=== PATIENT | female | born 1990 | race Caucasian/White ===

== ENCOUNTER → 2016-10-18 07:37 | Emergency (ER) | payer OTHER ==
[~2016-10-18 07:37] MED LIST: Dexamethasone IV* 4 MG/ML 1 ML (4 MG) IV SLOW PU ONE; Ketorolac INJ* 30 MG/ML 1 ML VIAL IV PUSH ONE; Orphenadrine Citrate IV* 30 MG/ML 2 ML VIAL IV ONE
[2016-10-18 09:03] LABS: Urine Bacteria Absent (Absent); Urine Bilirubin Negative (Negative); Urine Glucose Negative (Negative); Urine Nitrite Negative (Negative)
--- NOTE | 2016-10-18 09:07 | RAD ---
HISTORY: Back pain COMPARISONS: None VIEWS: 3 , Frontal, lateral, and coned-down lateral sacral views of the lumbar spine FINDINGS: ALIGNMENT: There is straightening of the normal lumbar lordosis. VERTEBRAL BODIES: The vertebral body heights are normal. The interpedicular distances are normal. JOINTS: The facet joints are normal. INTERVERTEBRAL DISCS: The intervertebral disc heights are normal. SOFT TISSUE: Unremarkable. OTHER: The pelvis is unremarkable. The lung bases are clear. IMPRESSION: STRAIGHTENING OF THE LUMBAR LORDOSIS.
[2016-10-18 10:00] VITALS: BP 114/60
--- NOTE | 2016-10-18 18:03 | ED ---
Elgin Hollis Billy, scribed for Xu Rockwell MD on 10/18/16 at 0758 . Back Pain - HPI Summary HPI Summary: Patient is a 26 year-old female coming to [facility] for evaluation of lower back pain since yesterday. She denies any nausea, vomiting, or urinary symptoms. Denies vaginal bleeding or discharge. LMP 1 week ago. She has no other complaints at this time. - History of Current Complaint Chief Complaint: EDBackInjuryPain Stated Complaint: BACK PAIN Time Seen by Provider: 10/18/16 07:56 Hx Obtained From: Patient Hx Last Menstrual Period: 2 weeks ago Onset/Duration: Gradual Onset Onset/Duration: Started Days Ago Timing: Constant Back Pain Location: Is Discrete @ Severity Initially: Moderate Severity Currently: Moderate Pain Intensity: 4 Pain Scale Used: 0-10 Numeric Associated Signs And Symptoms: Negative: Bladder Incontinence, Bowel Incontinence - Allergies/Home Medications Allergies/Adverse Reactions: Allergies Allergy/AdvReac Type Severity Reaction Status Date / Time Nickel Allergy Severe Rash Verified 03/30/16 11:35 Latex Allergy Mild Rash Verified 03/30/16 11:35 PMH/Surg Hx/FS Hx/Imm Hx Endocrine/Hematology History: Denies: Hx Anticoagulant Therapy, Hx Diabetes, Hx Thyroid Disease Cardiovascular History: Denies: Hx Hypertension, Hx Pacemaker/ICD Respiratory History: Reports: Hx Asthma Denies: Hx Chronic Obstructive Pulmonary Disease (COPD) GI History: Reports: Other GI Disorders - COLITIS /DIARRHEA/BLOOD IN STOOL History: Reports: Other Problems/Disorders - colitis hx Denies: Hx Renal Disease Neurological History: Denies: Hx Dementia, Hx Seizures Psychiatric History: Reports: Hx Anxiety, Hx Depression Denies: Hx Substance Abuse - Immunization History Date of Tetanus Vaccine: Unknown Infectious Disease History: No Infectious Disease History: Denies: Hx Hepatitis, Hx Human Immunodeficiency Virus (HIV), Traveled Outside the [place] in Last 30 Days - Family History Known Family History: Positive: Cardiac Disease, Diabetes - Social History Alcohol Use: None Substance Use Type: Reports: None Hx Tobacco Use: Yes Smoking Status (MU): Light Every Day Tobacco Smoker Type: Cigarettes Amount Used/How Often: quit a few months ago Have You Smoked in the Last Year: Yes Review of Systems Negative: Fever Negative: dysuria, hematuria Musculoskeletal: Other - lower back pain All Other Systems Reviewed And Are Negative: Yes Physical Exam - Summary Physical Exam Summary: General: Patient is a well developed female without any distress that is laying comfortably in the stretcher. Skin: [place], warm, dry HEAD AND FACE: No signs of trauma. EYES: PERRLA, EOMI x 2. EARS: Hearing grossly intact. MOUTH: Oropharynx within normal limits. NECK: Supple, trachea is midline, no adenopathy, no JVD. CHEST: Symmetric, no tenderness at palpation LUNGS: CTA bilaterally, no rales, rhonchi or wheezing CVS: RRR, no murmur, rub, or gallop ABDOMEN: soft and Nontender without masses, no guarding or rebound. Bowel sounds are active. No Hepato-splenomegaly. No signs of inguinal hernias. BACK: Patient walked into the ED room with symmetric ambulation, No signs of limping, antalgic, able to bear weight. No signs of trauma, no soft tissue or muscle tenderness, positive spasm in the Paraspinal muscles of the lumbar spine. No masses palpated. No point tenderness. No CVAT, no flank ecchymosis . No sacroiliac notch tenderness, No saddle anesthesia ROM: flexion/ extension/ lateral bending and rotation, note if limited or causes pain negative Straight Leg Raise Patellar reflexes: brisk, symmetric Muscle strength lower extremities. Dorsiflexion/ plantar flexion of ankles. Heel/ toe walk Lower extremities: Femoral, popliteal, posterior tibial, and pedal pulses with in normal, Rectal: Patient refused the exam. Triage Information Reviewed: Yes Vital Signs On Initial Exam: Initial Vitals Temp Pulse Resp BP Pulse Ox 98.4 F 82 18 125/78 100 10/18/16 07:39 10/18/16 07:39 10/18/16 07:39 10/18/16 07:39 10/18/16 07:39 Vital Signs Reviewed: Yes Diagnostics - Vital Signs Vital Signs Temp Pulse Resp BP Pulse Ox 10/18/16 07:39 98.4 F 82 18 125/78 100 - Laboratory Lab Statement: Any lab studies that have been ordered have been reviewed, and results considered in the medical decision making process. - Radiology Lumbar x-ray Radiology Interpretation Completed By: Radiologist - STRAIGHTENING OF THE LUMBAR LORDOSIS. Re-Evaluation - Re-Evaluation First Eval Re-Evaluation Time: 09:46 Comment: Imaging results reviewed. Back Pain Course/Dx - Course Assessment/Plan: Patient is a 26 year-old female coming to [facility] for evaluation of lower back pain since yesterday. She denies any nausea, vomiting, or urinary symptoms. Denies vaginal bleeding or discharge. LMP 1 week ago. She has no other complaints at this time. X-ray shows straightening of the lumbar lordosis. Patient was given Toradol, decadron, and norflex with a complete resolution of her symptoms. She is able to ambulate on her own and has minimal complaints. I believe that she has some muscle strain of the lumbar spine. Therefore she will be discharged home to follow up with PCP. She was given a prescription for ibuprofen and robaxin. She is hemodynamically stable, A&Ox3. At this point I discussed all the findings and test results with the patient. Patient was instructed to return to the emergency room immediately if any of the symptoms return or worsens. Patient understands and agrees. Patient is able to ambulate freely w/o aid or limp in the ER. Plan of care was discussed with the patient and patient understands and agrees. All questions were answered at patient satisfaction. There were no further complaints or concerns. Neurological exam before discharge: Patient is alert and oriented x 3. No acute neurological deficits. Patient is hemodynamically stable. Patient is to follow up with primary care physician in the next 2 3 days. He understands and agrees. - Diagnoses Differential Diagnosis/HQI/PQRI: Positive: Strain, Sprain, Other - UTI Provider Diagnoses: Lumbago Discharge - Discharge Plan Condition: Stable Disposition: HOME Prescriptions: Ibuprofen TAB* [Motrin TAB* 600 MG] 600 mg PO Q8H PRN #2 tab PRN Reason: Pain Methocarbamol [Robaxin-750 MG TAB] 750 mg PO TID PRN #9 tab PRN Reason: Pain Patient Education Materials: Back Pain (ED), Acute Low Back Pain (ED) Forms: *Work Release Referrals: Latasha Serrano [Primary Care Provider] - The documentation as recorded by the El[place] fields Billy accurately reflects the service I personally performed and the decisions made by me, Xu Rockwell MD.
== END | disposition home or self-care (01) ==
LOC: ED 07:37
DX: M54.5 Low back pain (principal)
CPT/HCPCS: 72100; 81003; 81015; 87086; 96374; 96375; 99282; J1100; J1885; J2360

== ENCOUNTER 2017-01-19 11:13 | Emergency (ER) | payer BC ==
[2017-01-19 11:49] LABS: Hematocrit 40 % (35-47); Hemoglobin 13.5 g/dl (12.0-16.0); Mean Corpuscular HGB Conc 34 g/dl (31-36); Mean Corpuscular Hemoglobin 30 pg (27-31); Mean Corpuscular Volume 89 fL (80-97); Mean Platelet Volume 9 um3 (7.4-10.4); Red Blood Count 4.48 10^6/ul (4.0-5.4); Red Cell Distribution Width 13 % (10.5-15); White Blood Count 8.8 10^3/ul (3.5-10.8)
[2017-01-19 12:00] LABS: ALT 22 U/L (7-52); AST 17 U/L (13-39); Albumin 4.5 g/dL (3.2-5.2); Alkaline Phosphatase 55 U/L (34-104); Anion Gap 8 mmol/L (2-11); BUN/Creatinine Ratio 35.8 (8-20); Blood Urea Nitrogen 19 mg/dL (6-24); CO2 Carbon Dioxide 22 mmol/L (22-32); Calcium 10.1 mg/dL (8.6-10.3); Chloride 104 mmol/L (101-111); EGFR African American 179.3 (>60); EGFR Non-African American 139.4 (>60); Globulin 3.2 g/dL (2-4); Glucose 85 mg/dL (70-100); Potassium 3.5 mmol/L (3.5-5.0); Sodium 134 mmol/L (133-145); Total Protein 7.7 g/dL (6.4-8.9)
--- NOTE | 2017-01-19 12:04 | RAD ---
INDICATION: Shortness of breath. Nonproductive cough. Diaphoresis. Dizziness. COMPARISON: April 29, 2016 TECHNIQUE: Dual energy PA and routine lateral views of the chest were obtained. REPORT: Clear lungs and pleural spaces. Negative for pneumothorax. The heart, pulmonary vasculature, and mediastinal contours are unremarkable. Unremarkable osseous structures and soft tissue contours. IMPRESSION: No evidence for acute intrathoracic disease.
[2017-01-19] MEDS ORDERED: NS 0.9% 1000 ML* 2,000 ML IV ONE (12:42)
--- NOTE | 2017-01-19 12:55 | RAD ---
HISTORY: Right upper quadrant pain COMPARISONS: March 04, 2014 TECHNIQUE: Multiple transverse and longitudinal ultrasound images were obtained of the right upper quadrant of the abdomen using grayscale and color Doppler imaging. FINDINGS: LIVER: The liver is normal in shape, size, contour, and echogenicity. There are no focal parenchymal masses. There is normal hepatopedal flow of the portal vein on Doppler imaging. BILIARY TREE: There is no intrahepatic or extrahepatic biliary dilatation. The common duct measures 0.3 cm. GALLBLADDER: The gallbladder is incompletely distended but is grossly normal. PANCREAS: The head of the pancreas is unremarkable. The tail of the pancreas is not well visualized secondary to overlying bowel gas. RIGHT KIDNEY: The right kidney is normal in shape, size, contour, and echogenicity. There is no hydronephrosis or nephrolithiasis. The right kidney measures 12.6 x 4.4 x 6.3 cm. AORTA AND IVC: The aorta and IVC are unremarkable. FLUID: There are no pleural effusions. There is no free fluid within the hepatorenal recess. OTHER FINDINGS: None. IMPRESSION: NO ACUTE SONOGRAPHIC PATHOLOGY OF THE VISUALIZED PORTION OF THE ABDOMEN
[2017-01-19 14:03] LABS: Lipase 19 U/L (11.0-82.0)
[2017-01-19 15:12] LABS: Urine Bilirubin Negative (Negative); Urine Glucose Negative (Negative); Urine Nitrite Negative (Negative)
--- NOTE | 2017-01-19 15:31 | ED ---
Bryn Hollis Benjamin, scribed for Laurence Mackey MD on 01/19/17 at 1158 . HPI Chest Pain - HPI Summary HPI Summary: 26yo female waking up not feeling good, light headed and CP. Pt reports not sleeping well last night. CP is mild and constant but intermittently spikes up to 7/10 pain. Today at work, pt had sudden dizziness and near syncopal sensation with diaphoresis when she stood up. Pt denies any long distance travel recently, but reports having sudden bruising on her left leg 1 week ago. Some bruising is still present today. Also reports mild RUQ pain. Pt Does not take any BCP or smoke tobacco. FHX of [place] before the age of 55 (mother at 53) and gall bladder dz but negative FHx for DVT or PE. - History of Current Complaint Chief Complaint: EDChestPainROMI Time Seen by Provider: 01/19/17 11:22 Hx Obtained From: Patient Hx Last Menstrual Period: 2 weeks ago Onset/Duration: Started Hours Ago, Still Present Timing: Constant, Intermittent - gets worse intermittently Initial Severity: Moderate Current Severity: Mild Pain Intensity: 7 Pain Scale Used: 0-10 Numeric Chest Pain Location: Diffuse Chest Pain Radiates: No Aggravating Factor(s): Nothing Alleviating Factor(s): Nothing Associated Signs and Symptoms: Positive: Chest Pain, Dizziness, Syncope - near, Lightheadedness, Diaphoresis, Abdominal Pain - RUQ - Allergy/Home Medications Allergies/Adverse Reactions: Allergies Allergy/AdvReac Type Severity Reaction Status Date / Time Nickel Allergy Severe Rash Verified 03/30/16 11:35 Latex Allergy Mild Rash Verified 03/30/16 11:35 PMH/Surg Hx/FS Hx/Imm Hx Endocrine/Hematology History: Denies: Hx Anticoagulant Therapy, Hx Diabetes, Hx Thyroid Disease Cardiovascular History: Denies: Hx Hypertension, Hx Pacemaker/ICD Respiratory History: Reports: Hx Asthma Denies: Hx Chronic Obstructive Pulmonary Disease (COPD) GI History: Reports: Other GI Disorders - COLITIS /DIARRHEA/BLOOD IN STOOL History: Reports: Other Problems/Disorders - colitis hx Denies: Hx Renal Disease Neurological History: Denies: Hx Dementia, Hx Seizures Psychiatric History: Reports: Hx Anxiety, Hx Depression Denies: Hx Substance Abuse - Immunization History Date of Tetanus Vaccine: Unknown Infectious Disease History: Denies: Hx Hepatitis, Hx Human Immunodeficiency Virus (HIV), Traveled Outside the [place] in Last 30 Days - Family History Known Family History: Positive: None, Cardiac Disease - [place] before 55, Diabetes, Other - Gall bladder dz - Social History Occupation: Employed Full-time Lives: With Family Alcohol Use: None Substance Use Type: Reports: None Hx Tobacco Use: Yes Smoking Status (MU): Light Every Day Tobacco Smoker Type: Cigarettes Amount Used/How Often: quit a few months ago Have You Smoked in the Last Year: Yes Review of Systems Positive: Skin Diaphoresis. Negative: Fever Eyes: Negative ENT: Negative Positive: Chest Pain. Negative: Palpitations Negative: Shortness Of Breath, Cough Positive: Abdominal Pain - RUQ Genitourinary: Negative Musculoskeletal: Negative Positive: Bruising - left leg Neurological: Other - lightheadedness Positive: Syncope Psychological: Normal All Other Systems Reviewed And Are Negative: Yes Physical Exam Triage Information Reviewed: Yes Vital Signs On Initial Exam: Initial Vitals Temp Pulse Resp BP Pulse Ox 97.6 F 88 18 124/67 99 01/19/17 11:16 01/19/17 11:16 01/19/17 11:16 01/19/17 11:16 01/19/17 11:16 Vital Signs Reviewed: Yes Appearance: Positive: Well-Appearing, No Pain Distress, Well-Nourished Skin: Positive: Warm, Dry Head/Face: Positive: Normal Head/Face Inspection Eyes: Positive: EOMI, DARA ENT: Positive: Normal ENT inspection, Hearing grossly normal Neck: Positive: Supple, Nontender Respiratory/Lung Sounds: Positive: Clear to Auscultation, Breath Sounds Present Cardiovascular: Positive: RRR, Pulses are Symmetrical in both Upper and Lower Extremities Abdomen Description: Negative: Nontender - mild RUQ tenderness Bowel Sounds: Positive: Present Musculoskeletal: Positive: Strength/ROM Intact Neurological: Positive: Sensory/Motor Intact, Alert, Oriented to Person Place, Time Psychiatric: Positive: Affect/Mood Appropriate Diagnostics - Vital Signs Vital Signs Temp Pulse Resp BP Pulse Ox 01/19/17 11:16 97.6 F 88 18 124/67 99 - Laboratory Lab Results: Lab Results 01/19/17 01/19/17 01/19/17 Range/Units 11:35 11:35 11:35 WBC 8.8 (3.5-10.8) 10^3/ul RBC 4.48 (4.0-5.4) 10^6/ul Hgb 13.5 (12.0-16.0) g/dl Hct 40 (35-47) % MCV 89 (80-97) fL MCH 30 (27-31) pg MCHC 34 (31-36) g/dl RDW 13 (10.5-15) % Plt Count 263 (150-450) 10^3/ul MPV 9 (7.4-10.4) um3 Neut % (Auto) 61.8 (38-83) % Lymph % (Auto) 30.7 (25-47) % Irion % (Auto) 4.6 (1-9) % Eos % (Auto) 2.0 (0-6) % Baso % (Auto) 0.9 (0-2) % Absolute Neuts (auto) 5.4 (1.5-7.7) 10^3/ul Absolute Lymphs (auto) 2.7 (1.0-4.8) 10^3/ul Absolute Monos (auto) 0.4 (0-0.8) 10^3/ul Absolute Eos (auto) 0.2 (0-0.6) 10^3/ul Absolute Basos (auto) 0.1 (0-0.2) 10^3/ul Absolute Nucleated RBC 0.01 10^3/ul Nucleated RBC % 0.1 D-Dimer, Quantitative (Less Than 230) ng/mL Sodium 134 (133-145) mmol/L Potassium 3.5 (3.5-5.0) mmol/L Chloride 104 (101-111) mmol/L Carbon Dioxide 22 (22-32) mmol/L Anion Gap 8 (2-11) mmol/L BUN 19 (6-24) mg/dL Creatinine 0.53 (0.51-0.95) mg/dL Est GFR ( Amer) 179.3 (>60) Est GFR (Non-Af Amer) 139.4 (>60) BUN/Creatinine Ratio 35.8 H (8-20) Glucose 85 (70-100) mg/dL Lactic Acid 0.8 (0.5-2.0) mmol/L Calcium 10.1 (8.6-10.3) mg/dL Total Bilirubin 0.40 (0.2-1.0) mg/dL AST 17 (13-39) U/L ALT 22 (7-52) U/L Alkaline Phosphatase 55 (34-104) U/L Troponin I 0.00 (<0.04) ng/mL Total Protein 7.7 (6.4-8.9) g/dL Albumin 4.5 (3.2-5.2) g/dL Globulin 3.2 (2-4) g/dL Albumin/Globulin Ratio 1.4 (1-3) Lipase 19 (11.0-82.0) U/L Beta HCG, Quant < 0.60 mIU/mL Urine Color Urine Appearance Urine pH (5-9) Ur Specific Sherrill (1.010-1.030) Urine Protein (Negative) Urine Ketones (Negative) Urine Blood (Negative) Urine Nitrate (Negative) Urine Bilirubin (Negative) Urine Urobilinogen (Negative) Ur Leukocyte Esterase (Negative) Urine Glucose (Negative) 01/19/17 01/19/17 Range/Units 11:35 12:10 WBC (3.5-10.8) 10^3/ul RBC (4.0-5.4) 10^6/ul Hgb (12.0-16.0) g/dl Hct (35-47) % MCV (80-97) fL MCH (27-31) pg MCHC (31-36) g/dl RDW (10.5-15) % Plt Count (150-450) 10^3/ul MPV (7.4-10.4) um3 Neut % (Auto) (38-83) % Lymph % (Auto) (25-47) % Irion % (Auto) (1-9) % Eos % (Auto) (0-6) % Baso % (Auto) (0-2) % Absolute Neuts (auto) (1.5-7.7) 10^3/ul Absolute Lymphs (auto) (1.0-4.8) 10^3/ul Absolute Monos (auto) (0-0.8) 10^3/ul Absolute Eos (auto) (0-0.6) 10^3/ul Absolute Basos (auto) (0-0.2) 10^3/ul Absolute Nucleated RBC 10^3/ul Nucleated RBC % D-Dimer, Quantitative < 200 (Less Than 230) ng/mL Sodium (133-145) mmol/L Potassium (3.5-5.0) mmol/L Chloride (101-111) mmol/L Carbon Dioxide (22-32) mmol/L Anion Gap (2-11) mmol/L BUN (6-24) mg/dL Creatinine (0.51-0.95) mg/dL Est GFR ( Amer) (>60) Est GFR (Non-Af Amer) (>60) BUN/Creatinine Ratio (8-20) Glucose (70-100) mg/dL Lactic Acid (0.5-2.0) mmol/L Calcium (8.6-10.3) mg/dL Total Bilirubin (0.2-1.0) mg/dL AST (13-39) U/L ALT (7-52) U/L Alkaline Phosphatase (34-104) U/L Troponin I (<0.04) ng/mL Total Protein (6.4-8.9) g/dL Albumin (3.2-5.2) g/dL Globulin (2-4) g/dL Albumin/Globulin Ratio (1-3) Lipase (11.0-82.0) U/L Beta HCG, Quant mIU/mL Urine Color Yellow Urine Appearance Clear Urine pH 6.0 (5-9) Ur Specific Sherrill 1.023 (1.010-1.030) Urine Protein Negative (Negative) Urine Ketones Trace H (Negative) Urine Blood Negative (Negative) Urine Nitrate Negative (Negative) Urine Bilirubin Negative (Negative) Urine Urobilinogen Negative (Negative) Ur Leukocyte Esterase Negative (Negative) Urine Glucose Negative (Negative) Result Diagrams: 01/19/17 11:35 01/19/17 11:35 Lab Statement: Any lab studies that have been ordered have been reviewed, and results considered in the medical decision making process. - Radiology CXR Xray Interpretation: No Acute Changes Radiology Interpretation Completed By: Radiologist - ED physician has reviewed this radiology report and agrees. - EKG 1122. Cardiac Rate: NL EKG Rhythm: Sinus Rhythm ST Segment: Normal EKG Comparison: Other - similar to EKG on 04/29/16 except the previous tachycardia. - Additional Comments Diagnostic Additional Comments: GALL BLADDER US IMPRESSION: NO ACUTE SONOGRAPHIC PATHOLOGY OF THE VISUALIZED PORTION OF THE ABDOMEN Chest Pain Course/Dx - Course Course Of Treatment: Reviewed pts medication and allergy lists. Blood pressure noted. 26 yo female with cp and near syncope while at work today, labs including 6 hour trop and ddimer neg pt had an element of ruq pain and u/s was neg as well gb labs, pt's hr went up initially with standing, pt received 2L of fluids here and is feeling much better - Diagnoses Provider Diagnoses: Near syncope Discharge - Discharge Plan Condition: Stable Disposition: HOME Patient Education Materials: Near Syncope (ED) Forms: *Work Release Referrals: Latasha Serrano [Primary Care Provider] - The documentation as recorded by the Bryn fields Benjamin accurately reflects the service I personally performed and the decisions made by me, Laurence Mackey MD.
[2017-01-19 15:34] VITALS: BP 117/66
== END 2017-01-19 15:35 | disposition home or self-care (01) ==
LOC: ED 11:13
DX: R55 Syncope and collapse (principal); F17.210 Nicotine dependence, cigarettes, uncomplicated; Z82.49 Family history of ischemic heart disease and other diseases of the circulatory system; R10.11 Right upper quadrant pain
CPT/HCPCS: 36415; 71020; 76705; 80053; 81003; 83605; 83690; 84484; 84702; 85025; 85379; 93005; 96360; 99284

== ENCOUNTER 2017-07-19 11:22 | Emergency (ER) | payer BC, OTHER ==
[2017-07-19 12:42] VITALS: BP 109/72
--- NOTE | 2017-07-19 14:07 | UC ---
Respiratory Complaint HPI - HPI Summary HPI Summary: Since Monday post nasal drip and congestion. Since monday she has had cough and some chest tightness not helped by pro air. No fevers or pain. - History of Current Complaint Chief Complaint: UCRespiratory Stated Complaint: RESPIRATORY,CONGESTION,HEADACHE Time Seen by Provider: 07/19/17 13:52 Hx Obtained From: Patient Hx Last Menstrual Period: 07/17/17 ?: No Onset/Duration: Gradual Onset, Lasting Days Timing: Constant Severity Initially: Moderate Severity Currently: Moderate Pain Intensity: 5 Character: Cough: Nonproductive Aggravating Factors: Deep Breaths, Recumbent Position Alleviating Factors: Upright Position, Spontaneous Resolution Associated Signs And Symptoms: Positive: Wheezing, URI, Nasal Congestion. Negative: Pleuritic Chest Pain, Hemoptysis, Dizziness, Calf Pain, Calf Swelling - Allergies/Home Medications Allergies/Adverse Reactions: Allergies Allergy/AdvReac Type Severity Reaction Status Date / Time latex Allergy Rash Verified 07/19/17 12:29 nickel Allergy Rash Uncoded 07/19/17 12:29 Home Medications: Home Medications Albuterol inh POWDER (NF) [Proair Respiclick] 2 puff INH Q4H PRN 07/19/17 [ History Confirmed 07/19/17] Oseltamivir CAP* [Tamiflu CAP*] 75 mg PO DAILY 07/19/17 [History Confirmed 07/19] hydrOXYzine HCL TAB* [Atarax 10 MG TAB*] 10 - 30 mg PO Q6H PRN 07/19/17 [ History Confirmed 07/19/17] PMH/Surg Hx/FS Hx/Imm Hx Previously Healthy: No - asthma. Other History Of: Negative For: Anticoagulant Therapy - Surgical History Surgical History: None - Family History Known Family History: Positive: None, Cardiac Disease - [place] before 55, Diabetes, Other - Gall bladder dz - Social History Alcohol Use: None Substance Use Type: None Smoking Status (MU): Former Smoker Type: Cigarettes Amount Used/How Often: quit a few months ago Have You Smoked in the Last Year: No When Did the Patient Quit Smoking/Using Tobacco: 2017 - Immunization History Most Recent Influenza Vaccination: 02/11/14 Most Recent Tetanus Shot: 06/03/14 Most Recent Pneumonia Vaccination: none Review of Systems ENT: Sinus Congestion Respiratory: Cough All Other Systems Reviewed And Are Negative: Yes Physical Exam Triage Information Reviewed: Yes Appearance: Well-Appearing, No Pain Distress, Well-Nourished Vital Signs: Initial Vital Signs Temp 99.7 F 07/19/17 12:34 Pulse 86 07/19/17 12:34 Resp 18 07/19/17 12:34 BP 109/72 07/19/17 12:34 Pulse Ox 99 07/19/17 12:34 Vital Signs Reviewed: Yes Eyes: Positive: Conjunctiva Clear ENT: Positive: Pharynx normal, Nasal congestion, TMs normal. Negative: TM bulging, TM dull, TM red Neck: Positive: Supple, Nontender, No Lymphadenopathy Respiratory: Positive: Lungs clear, Normal breath sounds, No respiratory distress, No accessory muscle use. Negative: Respiratory distress, Decreased breath sounds, Accessory muscle use, Crackles, Rhonchi, Stridor, Wheezing Cardiovascular: Positive: No Murmur, Pulses Normal, Brisk Capillary Refill Abdomen Description: Positive: No Organomegaly, Soft. Negative: Distended, Guarding Musculoskeletal: Positive: Strength Intact, ROM Intact, No Edema Neurological: Positive: Alert, Muscle Tone Normal. Negative: Fatigued Psychological: Positive: Normal Response To Family. Negative: Age Appropriate Behavior Skin: Positive: rashes UC Diagnostic Evaluation - Laboratory O2 Sat by Pulse Oximetry: 99 Respiratory Course/Dx - Differential Dx/Diagnosis Provider Diagnoses: acute bronchitis with acute exacerbation of asthma. Discharge - Discharge Plan Condition: Good Disposition: HOME Prescriptions: Fluticasone-Salmeterol 250-50* [Advair Diskus 250-50*] 1 puff INH BID #1 diskus methylPREDNISolone [Medrol] 4 mg PO DAILY #21 [email or web address] Patient Education Materials: Acute Bronchitis (ED), Bronchospasm (ED) Referrals: Latasha Serrano [Primary Care Provider] - Additional Instructions: OTC robitussin DM and mucinex D
== END 2017-07-19 14:11 | disposition home or self-care (01) ==
LOC: UCCORT 11:22
DX: J45.901 Unspecified asthma with (acute) exacerbation (principal); J20.9 Acute bronchitis, unspecified; Z87.891 Personal history of nicotine dependence
CPT/HCPCS: 99212; G0463

== ENCOUNTER → 2017-09-18 13:13 | Emergency (ER) | payer BC ==
[2017-09-18 13:31] VITALS: BP 152/82
--- NOTE | 2017-09-18 15:17 | RAD ---
Indication: Left shoulder pain. 3 views of left shoulder demonstrates no fracture. No other bone or joint abnormality is identified. IMPRESSION: No fracture of the left shoulder is noted.
--- NOTE | 2017-09-18 16:10 | ED ---
Upper Extremity Pain - HPI Summary HPI Summary: 27F presents with left shoulder pain for 2 weeks. She states pain is greatest over her posterior shoulder. She states her pain is worse when she tries to push behind. She denies any known injury. She denies any swelling to the area. She has been taking ibuprofen with minimal relief. She states heat makes area worse area. she denies any numbness or tingling. She is never had this pain before. 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 She denies any chest pain or shortness of breath. No cardiac history. - History of Current Complaint Chief Complaint: EDExtremityUpper Stated Complaint: LT SHOULDER PAIN Time Seen by Provider: 09/18/17 15:49 Hx Last Menstrual Period: 07/17/17 - Allergies/Home Medications Allergies/Adverse Reactions: Allergies Allergy/AdvReac Type Severity Reaction Status Date / Time latex Allergy Rash Verified 07/19/17 12:29 nickel Allergy Rash Uncoded 07/19/17 12:29 PMH/Surg Hx/FS Hx/Imm Hx Endocrine/Hematology History: Denies: Hx Anticoagulant Therapy, Hx Diabetes, Hx Thyroid Disease Cardiovascular History: Denies: Hx Hypertension, Hx Pacemaker/ICD Respiratory History: Reports: Hx Asthma Denies: Hx Chronic Obstructive Pulmonary Disease (COPD) GI History: Reports: Other GI Disorders - COLITIS /DIARRHEA/BLOOD IN STOOL History: Reports: Other Problems/Disorders - colitis hx Denies: Hx Renal Disease Neurological History: Denies: Hx Dementia, Hx Seizures Psychiatric History: Reports: Hx Anxiety, Hx Depression Denies: Hx Substance Abuse - Immunization History Date of Tetanus Vaccine: Unknown Infectious Disease History: No Infectious Disease History: Denies: Hx Hepatitis, Hx Human Immunodeficiency Virus (HIV), Traveled Outside the US in Last 30 Days - Family History Known Family History: Positive: None, Cardiac Disease - [place] before 55, Diabetes, Other - Gall bladder dz - Social History Alcohol Use: None Substance Use Type: Reports: None Hx Tobacco Use: Yes - quit 6 months ago Smoking Status (MU): Former Smoker Type: Cigarettes Amount Used/How Often: quit a few months ago Have You Smoked in the Last Year: No Review of Systems Negative: Fever Negative: Chest Pain Negative: Shortness Of Breath Positive: Myalgia - left shoulder pain All Other Systems Reviewed And Are Negative: Yes Physical Exam Triage Information Reviewed: Yes Vital Signs On Initial Exam: Initial Vitals Temp Pulse Resp BP Pulse Ox 99.1 F 88 15 152/82 100 09/18/17 13:28 09/18/17 13:28 09/18/17 13:28 09/18/17 13:28 09/18/17 13:28 Vital Signs Reviewed: Yes Appearance: Positive: Well-Appearing Skin: Positive: Warm, Dry Head/Face: Positive: Normal Head/Face Inspection Eyes: Positive: Normal, Conjunctiva Clear Respiratory/Lung Sounds: Positive: Clear to Auscultation, Breath Sounds Present Cardiovascular: Positive: Normal, RRR Musculoskeletal: Positive: Strength/ROM Intact - left shoulder, Other - pain greatest when tries to push off behind her but able to do so, neg hawkin and neer impingment, neg drop arm, yeragsons, good pulses, capillary refill<2 secs , tenderness over left trapezius muscle Neurological: Positive: Normal Psychiatric: Positive: Normal Diagnostics - Vital Signs Vital Signs Temp Pulse Resp BP Pulse Ox 09/18/17 13:28 99.1 F 88 15 152/82 100 - Laboratory Lab Statement: Any lab studies that have been ordered have been reviewed, and results considered in the medical decision making process. - Radiology shoulder Xray Interpretation: No Acute Changes Radiology Interpretation Completed By: Radiologist Course/Dx - Course Course Of Treatment: 27F presents with left shoulder pain for 2 weeks. She states pain is greatest over her posterior shoulder. She states her pain is worse when she tries to push behind. She denies any known injury. She denies any swelling to the area. She has been taking ibuprofen with minimal relief. She states heat makes area worse area. she denies any numbness or tingling. She is never had this pain before. 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 She denies any chest pain or shortness of breath. No cardiac history. On exam full range of motion of the shoulder. 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 Has pain greatest when tries to lift shoulder behind back. Tenderness over trapezius muscle. Do not suspect rotator cuff injury. We'll treat with muscle relaxer and if symptoms get worse we'll have follow-up with orthopedic. Patient understands agrees with plan. - Diagnoses Differential Diagnosis/HQI/PQRI: Positive: Fracture (Closed), Strain, Sprain Provider Diagnoses: Left shoulder pain Discharge - Sign-Out/Discharge Documenting (check all that apply): Discharge/Admit/Transfer - Discharge Plan Condition: Good Disposition: HOME Prescriptions: Cyclobenzaprine TAB* [Flexeril 10 MG TAB*] 10 mg PO TID PRN #15 tab PRN Reason: Pain Patient Education Materials: Shoulder Pain (ED) Forms: *Work Release Referrals: Latasha Serrano [Primary Care Provider] - Afua Krishnamurthy MD [Medical Doctor] - Additional Instructions: Take muscle relaxers three times a day Use ibuprofen or Tylenol for pain every 6 hours ice/heat area, move as much as possible Follow up with primary within 5 days or ortho if no improvement in a week Return to ED if develop any new or worsening symptoms - Billing Disposition and Condition Condition: GOOD Disposition: HOME
== END | disposition home or self-care (01) ==
LOC: ED 13:13
DX: M25.512 Pain in left shoulder (principal); J45.909 Unspecified asthma, uncomplicated; F41.9 Anxiety disorder, unspecified; F32.9 Major depressive disorder, single episode, unspecified; Z91.040 Latex allergy status; Z87.891 Personal history of nicotine dependence
CPT/HCPCS: 99282

== ENCOUNTER 2018-09-10 18:59 | Emergency (ER) | payer BC ==
--- NOTE | 2018-09-10 20:01 | ED ---
Abdominal Pain/Female - HPI Summary HPI Summary: A 28 y/o F presents to ED with c/o abd pain onset two days ago. She describes the pain as a "fluttering" in her uterus and then stabbing pain around her ovaries. [facility]: approx 08/31/18. She says it was the heaviest flow she's had in a while. Denies urinary sx. She also has a different R-sided abd onesimo described as heart burn that has been going on for a few weeks. The pain wakes her from sleep. The heart burn radiates to her mid back. Associated sx: severe nausea. She denies abd surgeries. Former smoker, rare ETOH. PMHx: heart murmur, GERD. No daily medications. - History of Current Complaint Chief Complaint: EDAbdPain Stated Complaint: ABD PAIN PER PT Time Seen by Provider: 09/10/18 19:54 Hx Obtained From: Patient Hx Last Menstrual Period: 07/17/17 Onset/Duration: Gradual Onset, Lasting Days, Still Present Timing: Constant Severity Initially: Moderate Severity Currently: Moderate Pain Intensity: 6 Pain Scale Used: 0-10 Numeric Location: Suprapubic Character: Sharp, Other: - "flutter" Associated Signs and Symptoms: Positive: Back Pain, Nausea - severe, Other: - pos: R-sided abd pain described as burning. Negative: Urinary Symptoms Allergies/Adverse Reactions: Allergies Allergy/AdvReac Type Severity Reaction Status Date / Time latex Allergy Rash Verified 09/10/18 19:05 nickel Allergy Rash Uncoded 09/10/18 19:05 Home Medications: Home Medications Ibuprofen 600 mg PO TID PRN 09/10/18 [History Confirmed 09/10/18] PMH/Surg Hx/FS Hx/Imm Hx Previously Healthy: Yes Endocrine/Hematology History: Denies: Hx Anticoagulant Therapy, Hx Diabetes, Hx Thyroid Disease Cardiovascular History: Denies: Hx Hypertension, Hx Pacemaker/ICD Respiratory History: Reports: Hx Asthma Denies: Hx Chronic Obstructive Pulmonary Disease (COPD) GI History: Reports: Other GI Disorders - COLITIS /DIARRHEA/BLOOD IN STOOL History: Reports: Other Problems/Disorders - colitis hx Denies: Hx Renal Disease Neurological History: Denies: Hx Dementia, Hx Seizures Psychiatric History: Reports: Hx Anxiety, Hx Depression Denies: Hx Substance Abuse - Immunization History Date of Tetanus Vaccine: Unknown Infectious Disease History: No Infectious Disease History: Denies: Hx Hepatitis, Hx Human Immunodeficiency Virus (HIV), Traveled Outside the [place] in Last 30 Days - Family History Known Family History: Positive: Cardiac Disease - [place] before 55, Diabetes, Other - Gall bladder dz - Social History Occupation: Employed Full-time Lives: Alone Alcohol Use: None Hx Substance Use: No Substance Use Type: Reports: None Hx Tobacco Use: Yes - quit 6 months ago Smoking Status (MU): Former Smoker Type: Cigarettes Amount Used/How Often: quit a few months ago Have You Smoked in the Last Year: No Review of Systems Negative: Fever Positive: Abdominal Pain - suprapubic and R-sided, Nausea - severe Negative: dysuria, hematuria Musculoskeletal: Other - pos: mid back pain All Other Systems Reviewed And Are Negative: Yes Physical Exam - Summary Physical Exam Summary: Appearance: Well-appearing, Well-nourished, lying in bed comfortably Skin: Warm, dry, no obvious rash Eyes: sclera anicteric, no conjunctival pallor ENT: mucous membranes moist, pharynx appears normal Neck: Supple, nontender Respiratory: Clear to auscultation, no signs of respiratory distress Cardiovascular: Normal S1, S2. No murmurs. Normal distal pulses in tibial and radial bilaterally. Abdomen: Soft, Suprapubic tenderness, worse on the R than the L, normal active bowel sounds present Musculoskeletal: Normal, Strength/ROM Intact Neurological: A&Ox3, awake and alert, mentation is normal, speech is fluent and appropriate Psychiatric: affect is normal, does not appear anxious or depressed Triage Information Reviewed: Yes Vital Signs On Initial Exam: Initial Vitals Temp Pulse Resp BP Pulse Ox 98.1 F 87 16 138/84 99 09/10/18 19:03 09/10/18 19:03 09/10/18 19:03 09/10/18 19:03 09/10/18 19:03 Vital Signs Reviewed: Yes Diagnostics - Vital Signs Vital Signs Temp Pulse Resp BP Pulse Ox 09/10/18 19:03 98.1 F 87 16 138/84 99 - Laboratory Result Diagrams: 09/10/18 20:21 09/10/18 20:21 Lab Statement: Any lab studies that have been ordered have been reviewed, and results considered in the medical decision making process. - Ultrasound No standard instances Ultrasound Interpretation Completed By: Radiologist Summary of Ultrasound Findings: GALLBLADDER US IMPRESSION: No cholelithiasis but there is a small gallbladder wall polyp measuring. approximately 3 mm. Gallbladder wall thickness is at upper limits of normal measuring 3 mm but negative sonographic Howell sign therefore not specific for acute cholecystitis. ED provider has reviewed this report. - Additional Comments Diagnostic Additional Comments: PELVIS US as read by radiologist: IMPRESSION: No acute sonographic pathology. ED provider has reviewed this report. Re-Evaluation - Re-Evaluation 1 Re-Evaluation Time: 23:06 Comment: Discussing results with pt. Abdominal Pain Fem Course/Dx - Course Course Of Treatment: Pt is a 28 y/o F presenting with suprapubic abd pain onset two days ago, described as "fluttering" in her uterus and "stabbing" around her ovaries. [facility]: approx 08/31/18. She is not having urinary sx. Also discussed with pt her severe nausea and heart-burn related R-sided abd pain. Lab work is unremarkable. UA shows 1+ blood, 1+ bacteria, and squamous epithelia present. Pelvis US is negative. Gallbladder US shows "No cholelithiasis but there is a small gallbladder wall polyp measuring approx 3 mm. Gallbladder wall thickness is at upper limits of normal measuring 3 mm but negative sonographic Howell sign , therefore not specific for acute cholecystitis.". Will discharge patient home. - Diagnoses Provider Diagnoses: GERD (gastroesophageal reflux disease), Pelvic pain Discharge - Sign-Out/Discharge Documenting (check all that apply): Patient Departure - DC Patient Received Moderate/Deep Sedation with Procedure: No - Discharge Plan Condition: Good Disposition: HOME Prescriptions: Omeprazole CAP (NF) [Prilosec CAP* 20 MG] 20 mg PO BEDTIME #30 Patient Education Materials: Gastroesophageal Reflux Disease (ED) Referrals: Latasha Serrano [Primary Care Provider] - 1 Week - Billing Disposition and Condition Condition: GOOD Disposition: Home - Attestation Statements Document Initiated by Scribe: Yes Documenting Scribe: Leslye Mandujano Provider For Whom Scribe is Documenting (Include Credential): Dr. Otis Alexis MD Scribe Attestation: Leslye Hollis scribed for Dr. Otis Alexis MD on 09/11/18 at 0432. Scribe Documentation Reviewed: Yes Provider Attestation: The documentation as recorded by the Carlos fieldsoung Nazia accurately reflects the service I personally performed and the decisions made by me, Dr. Otis Alexis MD Status of Scribe Document: Viewed
[2018-09-10 20:27] LABS: ABS Basophils 0.1 10^3/ul (0-0.2); ABS Eosinophils 0.3 10^3/ul (0-0.6); ABS Lymphocytes 3.1 10^3/ul (1.0-4.8); ABS Monocytes 0.5 10^3/ul (0-0.8); ABS Neutrophils 6.3 10^3/ul (1.5-7.7); ABS Nucleated RBC 0 10^3/ul; Eosinophil % 2.5 %; Hematocrit 41 % (33-41); Hemoglobin 13.8 g/dL (12.0-16.0); Lymphocyte % 30.2 %; Mean Corpuscular HGB Conc 34 g/dL (31-36); Mean Corpuscular Hemoglobin 30 pg (27-31); Mean Corpuscular Volume 89 fL (80-97); Mean Platelet Volume 8.5 fL (7.4-10.4); Nucleated Red Blood Cells % 0; Platelet Count 289 10^3/uL (150-450); Red Blood Count 4.58 10^6 /uL (3.70-4.87); Red Cell Distribution Width 13 % (10.5-15); White Blood Count 10.2 10^3/uL (3.5-10.8)
[2018-09-10 20:44] LABS: ALT 22 U/L (7-52); AST 17 U/L (13-39); Albumin 4.6 g/dL (3.2-5.2); Albumin/Globulin Ratio 1.4 (1-3); Alkaline Phosphatase 77 U/L (34-104); Anion Gap 6 mmol/L (2-11); BUN/Creatinine Ratio 20.8 (8-20); Blood Urea Nitrogen 16 mg/dL (6-24); CO2 Carbon Dioxide 26 mmol/L (22-32); Calcium 9.4 mg/dL (8.6-10.3); Chloride 104 mmol/L (101-111); EGFR Non-African American 89.3 (>60); Globulin 3.3 g/dL (2-4); Glucose 95 mg/dL (70-100); Potassium 4.4 mmol/L (3.5-5.0); Sodium 136 mmol/L (135-145); Total Protein 7.9 g/dL (6.4-8.9)
[2018-09-10 20:50] LABS: HCG Pregnancy < 0.60 mIU/mL
[2018-09-10 21:18] LABS: C Reactive Protein 5.48 mg/L (<8.01)
[2018-09-10 22:03] LABS: Urine Appearance Cloudy; Urine Bacteria 1+ (Absent); Urine Bilirubin Negative (Negative); Urine Blood 1+ (Negative); Urine Color Yellow; Urine Glucose Negative (Negative); Urine Ketones Negative (Negative); Urine Nitrite Negative (Negative); Urine Protein Negative (Negative); Urine Red Blood Cell Trace(0-2/hpf) (Absent); Urine Specific Gravity 1.014 (1.010-1.030); Urine Squamous Epithelial Cell Present (Absent); Urine Urobilinogen Negative (Negative); Urine White Blood Cell Trace(0-5/hpf) (Absent)
[2018-09-10 23:18] VITALS: BP 139/98
== END 2018-09-10 23:17 | disposition home or self-care (01) ==
LOC: ED 18:59
DX: R10.2 Pelvic and perineal pain (principal); K21.9 Gastro-esophageal reflux disease without esophagitis; F32.9 Major depressive disorder, single episode, unspecified; F41.9 Anxiety disorder, unspecified
CPT/HCPCS: 36415; 76705; 76856; 80053; 81003; 81015; 83690; 84702; 85025; 86140; 87086; 99283

== ENCOUNTER 2019-06-27 21:29 | Emergency (ER) | payer BC ==
[2019-06-27 22:02] VITALS: BP 133/78
[2019-06-27 22:13] LABS: Influenza A Molecular Negative (Negative); Influenza B Molecular Negative (Negative)
[2019-06-27] MEDS ORDERED: Ibuprofen TAB* 600 MG PO ONE (22:15)
--- NOTE | 2019-06-27 22:20 | UC ---
FLU HPI - HPI Summary HPI Summary: 28-year-old woman comes in with a chief complaint of nausea chest congestion cough bodyaches fevers. Symptoms started yesterday. Today during a lot worse. Patient does have history of asthma and has an albuterol inhaler but she has not used it for this illness. She tried some [id number] medicine which helped for a brief time. - History of Current Complaint Chief Complaint: UCGeneralIllness Stated Complaint: FLU LIKE SYMPTOMS Time Seen by Provider: 06/27/19 21:57 Hx Last Menstrual Period: 07/17/17 Pain Intensity: 6 - Allergy/Home Medications Allergies/Adverse Reactions: Allergies Allergy/AdvReac Type Severity Reaction Status Date / Time latex Allergy Rash Verified 06/27/19 22:02 nickel Allergy Rash Uncoded 06/27/19 22:02 Home Medications: Home Medications Zicam Gummies PO 06/27/19 [History] PMH/Surg Hx/FS Hx/Imm Hx Previously Healthy: Yes Respiratory History: Asthma Other History Of: Negative For: Anticoagulant Therapy - Surgical History Surgical History: None - Family History Known Family History: Positive: None, Cardiac Disease - [place] before 55, Diabetes, Other - Gall bladder dz - Social History Alcohol Use: Rare Substance Use Type: None Smoking Status (MU): Former Smoker Type: Cigarettes Amount Used/How Often: quit a few months ago Have You Smoked in the Last Year: No When Did the Patient Quit Smoking/Using Tobacco: 2016 - Immunization History Most Recent Influenza Vaccination: 02/11/14 Most Recent Tetanus Shot: 06/03/14 Most Recent Pneumonia Vaccination: none Review of Systems All Other Systems Reviewed And Are Negative: Yes Constitutional: Positive: Fever, Chills, Other - SEE HPI Skin: Positive: Negative Eyes: Positive: Negative ENT: Positive: Sore Throat - MILD, Nasal Discharge Respiratory: Positive: Cough, Other - SEE HPI Cardiovascular: Positive: Other - SEE HPI Gastrointestinal: Positive: Nausea Motor: Positive: Negative Neurovascular: Positive: Negative Musculoskeletal: Positive: Myalgia Neurological: Positive: Negative Psychological: Positive: Negative Is Patient Immunocompromised?: No Physical Exam Triage Information Reviewed: Yes Appearance: No Pain Distress, Well-Nourished, Ill-Appearing - MILD Vital Signs: Initial Vital Signs Temp 99.5 F 06/27/19 21:57 Pulse 98 06/27/19 21:57 Resp 18 06/27/19 21:57 BP 133/78 06/27/19 21:57 Pulse Ox 99 06/27/19 21:57 Vital Signs Reviewed: Yes Eye Exam: Normal Eyes: Positive: Conjunctiva Clear ENT: Positive: Pharynx normal, Nasal drainage, TMs normal Neck: Positive: Supple Respiratory: Positive: Lungs clear, Normal breath sounds, No respiratory distress Cardiovascular: Positive: RRR Musculoskeletal: Positive: Strength Intact, ROM Intact Neurological: Positive: Alert, Muscle Tone Normal Psychological: Positive: Age Appropriate Behavior Skin Exam: Normal Flu Course/Dx - Course Course Of Treatment: Influenza A and B are negative. Discussed viral verses bacterial infection and the role of antibiotics. We will treat symptomatically at this time. If patient does not improve or gets worse she should get reevaluated. - Differential Dx/Diagnosis Provider Diagnosis: Upper respiratory infection Discharge ED - Sign-Out/Discharge Documenting (check all that apply): Patient Departure All imaging exams completed and their final reports reviewed: No Studies - Discharge Plan Condition: Stable Disposition: HOME Patient Education Materials: Upper Respiratory Infection (ED) Forms: *Work Release Referrals: Latasha Serrano [Primary Care Provider] - Additional Instructions: FOLLOW UP WITH YOUR DOCTOR IF NOT COMPLETELY IMPROVED. GET RECHECKED SOONER IF YOUR CONDITION WORSENS OR ANY QUESTIONS OR CONCERNS. - Billing Disposition and Condition Condition: STABLE Disposition: Home
== END 2019-06-27 22:25 | disposition home or self-care (01) ==
LOC: UCCORT 21:29
DX: J06.9 Acute upper respiratory infection, unspecified (principal); J45.909 Unspecified asthma, uncomplicated; Z91.09 Other allergy status, other than to drugs and biological substances; Z87.891 Personal history of nicotine dependence; Z91.040 Latex allergy status; Z79.899 Other long term (current) drug therapy
CPT/HCPCS: 99212; A9270-GY; G0463

== ENCOUNTER 2019-07-02 13:56 | Emergency (ER) | payer BC ==
--- NOTE | 2019-07-02 14:10 | ED ---
Head Injury - HPI Summary HPI Summary: Patient is a 28 y/o F presenting to the ED for a chief complaint of head injury. Patient states that she dropped a reem of paper on her head while reaching for the paper at work. Currently, patient reports photophobia, nausea, vomiting, dizziness, a burning sensation in her face, and stickiness in her eyeballs. Patient denies loss of consciousness, vision changes, or one-sided weakness. She took Tylenol without relief. PMHx is significant for concussion. Any significant PSHx or medications are denied. Patient admits occasional alcohol use, but denies tobacco or drug use. Medications reviewed. Allergies noted. - History Of Current Complaint Chief Complaint: EDHeadInjury Stated Complaint: POSS HEAD INJURY PER PT Time Seen by Provider: 07/02/19 14:05 Hx Obtained From: Patient Hx Last Menstrual Period: 07/17/17 Onset/Duration: Traumatic, Still Present Onset of Pain: Immediate Severity Currently: Moderate Severity Initially: Moderate Pain Intensity: 6 Pain Scale Used: 0-10 Numeric Location of Head Injury: Diffuse Alleviating Factor(s): Other: - No relief with Tylenol Associated Signs And Symptoms: Nausea, Vomiting - Allergies/Home Medications Allergies/Adverse Reactions: Allergies Allergy/AdvReac Type Severity Reaction Status Date / Time latex Allergy Rash Verified 06/27/19 22:02 nickel Allergy Rash Uncoded 06/27/19 22:02 PMH/Surg Hx/FS Hx/Imm Hx Previously Healthy: Yes Endocrine/Hematology History: Denies: Hx Anticoagulant Therapy, Hx Diabetes, Hx Thyroid Disease Cardiovascular History: Denies: Hx Hypertension, Hx Pacemaker/ICD Respiratory History: Reports: Hx Asthma Denies: Hx Chronic Obstructive Pulmonary Disease (COPD) GI History: Reports: Other GI Disorders - COLITIS /DIARRHEA/BLOOD IN STOOL Denies: Hx Ulcer History: Reports: Other Problems/Disorders - colitis hx Denies: Hx Renal Disease Sensory History: Denies: Hx Legally Blind, Hx Deafness Opthamlomology History: Denies: Hx Legally Blind EENT History: Denies: Hx Deafness Neurological History: Reports: Other Neuro Impairments/Disorders - Concussion Denies: Hx Dementia, Hx Seizures Psychiatric History: Reports: Hx Anxiety, Hx Depression Denies: Hx Substance Abuse - Surgical History Surgical History: None Surgery Procedure, Year, and Place: None - Immunization History Date of Tetanus Vaccine: Unknown Infectious Disease History: No Infectious Disease History: Denies: Hx Hepatitis, Hx Human Immunodeficiency Virus (HIV), Traveled Outside the [place] in Last 30 Days - Family History Known Family History: Positive: Cardiac Disease - [place] before 55, Diabetes, Other - Gall bladder dz - Social History Occupation: Employed Full-time Alcohol Use: Rare Hx Substance Use: No Substance Use Type: Reports: None Hx Tobacco Use: Yes - quit 6 months ago Smoking Status (MU): Former Smoker Type: Cigarettes Amount Used/How Often: quit a few months ago Have You Smoked in the Last Year: No Review of Systems Positive: Photophobia, Other - Positive "stickiness in her eyeballs;" negative vision changes Positive: Vomiting, Nausea Neurological/Mental Status: Other - Positive dizziness and burning sensation in the face Negative: Weakness - One-sided, Syncope - LOC All Other Systems Reviewed And Are Negative: Yes Physical Exam - Summary Physical Exam Summary: Constitutional: Well-developed, Well-nourished, Alert. (-) Distressed Skin: Warm, Dry HENT: Normocephalic; Atraumatic Eyes: Conjunctiva normal Neck: Musculoskeletal ROM normal neck. (-) JVD, (-) Stridor, (-) Tracheal deviation Cardio: Rhythm regular, rate normal, Heart sounds normal; Intact distal pulses; Radial pulses are 2+ and symmetric. (-) Murmur Pulmonary/Chest wall: Effort normal. (-) Respiratory distress, (-) Wheezes, (-) Rales Abd: Soft, (-) tenderness, (-) Distension, (-) Guarding, (-) Rebound Musculoskeletal: (-) Edema Lymph: (-) Cervical adenopathy Neuro: Alert, Oriented x3. Appears to be sensitive to light, right side of the face has decreased sensation compared to the left. Psych: Mood and affect Normal Triage Information Reviewed: Yes Vital Signs On Initial Exam: Initial Vitals Temp Pulse Resp BP Pulse Ox 99.2 F 87 18 138/87 99 07/02/19 14:01 07/02/19 14:01 07/02/19 14:01 07/02/19 14:01 07/02/19 14:01 Vital Signs Reviewed: Yes Procedures - Sedation Patient Received Moderate/Deep Sedation with Procedure: No Diagnostics - Vital Signs Vital Signs Temp Pulse Resp BP Pulse Ox 07/02/19 14:01 99.2 F 87 18 138/87 99 - Laboratory Lab Statement: Any lab studies that have been ordered have been reviewed, and results considered in the medical decision making process. Re-Evaluation - Re-Evaluation First Eval Re-Evaluation Time: 15:10 Change: Improved Comment: At 15:10, patient is not vomiting and feeling slightly better. Head Injury Course/Dx Course Of Treatment: Patient is here with a low mechanism head injury. Patient had a reading the paper fall her head from roughly Alicia distance. Patient does have symptoms consistent with a concussion. Patient was given Zofran and monitored in the ED for change in her neuro status. She did not need a CT scan per clinical decision making tools. Patient likely has a concussion and was educated on concussion management - Diagnoses Provider Diagnoses: Concussion Discharge ED - Sign-Out/Discharge Documenting (check all that apply): Patient Departure - Discharge - Discharge Plan Condition: Stable Disposition: HOME Prescriptions: Ondansetron ODT TAB* [Zofran 4 MG Odt TAB*] 4 mg PO Q8H PRN #12 tab.odt PRN Reason: Vomiting Patient Education Materials: Concussion (ED) Forms: *Work Release Referrals: Latasha Serrano [Primary Care Provider] - Additional Instructions: PLEASE RETURN TO EMERGENCY DEPARTMENT FOR SLURRED SPEECH, YOU ARE NOT ACTING NORMALLY, ONE-SIDED WEAKNESS, OR ANY NEW OR WORSENING SYMPTOMS. Please follow up with your primary care physician in one week. Take you nausea medications as prescribed. Take Motrin and Tylenol for pain as needed. Do the concussion management we discussed for the next 2 days. - Billing Disposition and Condition Condition: STABLE Disposition: Home - Attestation Statements Document Initiated by Dc: Yes Documenting Scribe: Krupa Pickard Provider For Whom Dc is Documenting (Include Credential): Francisco Burns MD Scribe Attestation: Krupa Hollis scribed for Francisco Burns MD on 07/02/19 at 1557. Scribe Documentation Reviewed: Yes Provider Attestation: The documentation as recorded by the Krupa fields accurately reflects the service I personally performed and the decisions made by me, Francisco Burns MD Status of Scribe Document: Viewed
[2019-07-02] MEDS: Ondansetron ODT TAB* 4 MG PO ONE (15:04)
[2019-07-02 15:18] VITALS: BP 121/80
== END 2019-07-02 15:17 | disposition home or self-care (01) ==
LOC: ED 13:56
DX: S06.0X9A Concussion with loss of consciousness of unspecified duration, initial encounter (principal); W20.8XXA Other cause of strike by thrown, projected or falling object, initial encounter; Y92.89 Other specified places as the place of occurrence of the external cause; Y99.0 Civilian activity done for income or pay; J45.909 Unspecified asthma, uncomplicated; F41.9 Anxiety disorder, unspecified; F32.9 Major depressive disorder, single episode, unspecified; Z87.891 Personal history of nicotine dependence; Z91.040 Latex allergy status
CPT/HCPCS: 99282; A9270-GY